=== PATIENT | female | born 1990 | race Hispanic/Latino ===

== ENCOUNTER 2018-04-18 18:02 | Emergency (ER) | payer SELFPAY ==
[2018-04-18 19:26] LABS: Urine Blood NEGATIVE (NEG); Urine Glucose NEGATIVE (NEG); Urine Protein NEGATIVE (NEG); Urine Specific Gravity 1.025 (1.005-1.030); Urine pH 6.5 (5.0-7.0)
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
== END 2018-04-18 20:06 | disposition home or self-care (01) ==
LOC: ER 18:02
DX: M54.5 Low back pain (principal); F17.210 Nicotine dependence, cigarettes, uncomplicated
CPT/HCPCS: 72100; 81003; 81025; 99284

== ENCOUNTER 2019-08-31 08:33 | Emergency (ER) | payer SELFPAY ==
[2019-08-31] MEDS ORDERED: CYCLOBENZAPRINE 10 MG TAB ONE (09:39)
[2019-08-31] MEDS ORDERED: TRAMADOL HCL 50 MG TAB ONE (09:39)
[2019-08-31] MEDS ORDERED: IBUPROFEN 400 MG TAB ONE (09:40)
[2019-08-31] MEDS ORDERED: IBUPROFEN 200 MG TAB PO ONE (09:40)
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
[2019-08-31 11:40] VITALS: BP 108/75; TEMP 98.1; O2SAT 100
[2019-08-31 18:00] LABS: Urine Blood NEGATIVE (NEG); Urine Glucose NEGATIVE (NEG); Urine Protein NEGATIVE (NEG); Urine pH 7.5 (5.0-7.0)
--- OUTSIDE RECORDS SUMMARY | 2019-09-05 00:31 | XMS REPORT ---
:1990 [facility] Address [address] [place] [address] Dr. [address] [place] [id number] Care Team Providers Name Role Phone Unavailable Unavailable Unavailable Problems This patient has no known problems. Allergies, Adverse Reactions, Alerts This patient has no known allergies or adverse reactions. Medications This patient has no known medications.
== END 2019-08-31 11:18 | disposition left against medical advice (07) ==
LOC: ER 08:33
DX: M54.6 Pain in thoracic spine (principal); V49.40XA Driver injured in collision with unspecified motor vehicles in traffic accident, initial encounter; F17.210 Nicotine dependence, cigarettes, uncomplicated
CPT/HCPCS: 71250; 81003; 81025; 99284

== ENCOUNTER 2020-12-06 09:24 | Emergency (ER) | payer SELFPAY ==
--- NOTE | 2020-12-06 10:20 | RAD REPORT ---
EXAM DESCRIPTION: RAD - Chest Single View - 12/06/2020 10:14 am CLINICAL HISTORY: Cough;Congestion Chest pain. COMPARISON: No comparisons FINDINGS: Portable technique limits examination quality. The lungs are grossly clear. The heart is normal in size. No displaced fractures. IMPRESSION: No acute intrathoracic process suspected.
[2020-12-06 10:58] LABS: Urine Blood NEGATIVE (NEG); Urine Glucose NEGATIVE (NEG); Urine Protein NEGATIVE (NEG); Urine Specific Gravity >1.030 (1.005-1.030); Urine pH 6.5 (5.0-7.0)
[2020-12-06 11:17] LABS: Urine Bacteria >50 /HPF (<20); Urine RBC <5 /HPF (NONE SEEN); Urine Trichomonas PRESENT (NONE SEEN)
[2020-12-06 11:40] LABS: SARS-COV-2 RT PCR NEGATIVE (NEGATIVE)
--- NOTE | 2020-12-06 11:44 | ER ---
Nurse's Notes [facility] Name: Valerie Sprague Age: 30 yrs Sex: Female : 1990 Arrival Date: 12/06/2020 Time: 09:26 Bed 13 Private MD: Diagnosis: Urinary tract infection, site not specified;Acute upper respiratory infection, unspecified;Trichomoniasis Presentation: 12/06 09:37 Chief complaint: Patient states: "I have been feeling bad for about a week now thinking jd3 it was my sinus infection. cough, congestion, headache with nausea and vomiting.". Coronavirus screen: congestion, cough unrelated to allergies, fatigue, nausea, shortness of breath, vomiting. Client presents with at least one sign or symptom that may indicate coronavirus-19. Standard/surgical mask placed on the client. Provider contacted for isolation considerations. Ebola Screen: Patient negative for fever greater than or equal to 101.5 degrees Fahrenheit, and additional compatible Ebola Virus Disease symptoms. Initial Sepsis Screen: Does the patient meet any 2 criteria? No. Patient's initial sepsis screen is negative. Does the patient have a suspected source of infection? No. Patient's initial sepsis screen is negative. Risk Assessment: Do you want to hurt yourself or someone else? Patient reports no desire to harm self or others. Onset of symptoms was November 29, 2020. 09:37 Method Of Arrival: Ambulatory [facility] 09:37 Acuity: JAMA 3 jd3 DIRECTOR OF INTELLIGENCE: 12:22 LMP N/A - Irregular menses jd3 Historical: - Allergies: 09:43 No Known Allergies; jd3 - Home Meds: 09:43 None [Active]; jd3 - PMHx: 09:43 None; jd3 - PSHx: 09:43 ; jd3 - Immunization history:: Adult Immunizations up to date. - Social history:: Smoking status: unknown. Screenin:46 Abuse screen: Denies threats or abuse. Nutritional screening: No deficits noted. jd3 Tuberculosis screening: No symptoms or risk factors identified. Fall Risk Ambulatory Aid- None/Bed Rest/Nurse Assist (0 pts). Gait- Normal/Bed Rest/Wheelchair (0 pts) Mental Status- Oriented to own ability (0 pts). Total Gay Fall Scale indicates No Risk (0-24 pts). Assessment: 09:44 General: Appears in no apparent distress. uncomfortable, Behavior is calm, cooperative, jd3 appropriate for age. Pain: Complains of pain in chest Quality of pain is described as pressure. Neuro: Level of Consciousness is awake, alert, obeys commands, Oriented to person, place, time, situation. Cardiovascular: Capillary refill < 3 seconds Patient's skin is warm and dry. Respiratory: Reports shortness of breath on exertion cough that is persistent Airway is patent Respiratory effort is even, unlabored, Respiratory pattern is regular, symmetrical. GI: Reports nausea, vomiting. : No signs and/or symptoms were reported regarding the genitourinary system. EENT: No signs and/or symptoms were reported regarding the EENT system. Derm: Skin is intact, Skin is dry, Skin is normal, Skin temperature is warm. Musculoskeletal: Circulation, motion, and sensation intact. Range of motion: intact in all extremities. 12:21 Reassessment: Patient appears in no apparent distress at this time. Patient and/or jd3 family updated on plan of care and expected duration. Pain level reassessed. Patient is alert, oriented x 3, equal unlabored respirations, skin warm/dry/pink. reported understanding of discharge instructions, even and steady gait upon discharge. Vital Signs: 09:43 BP 118 / 83; Pulse 75; Resp 18 S; Temp 98.0(O); Pulse Ox 100% on R/A; Weight 99.79 kg jd3 (R); Height 5 ft. 1 in. (154.94 cm) (R); Pain 8/10; 11:08 BP 104 / 72; Pulse 74; Resp 17 S; Pulse Ox 98% on R/A; jd3 12:22 BP 110 / 74; Pulse 76; Resp 16 S; Pulse Ox 98% on R/A; jd3 09:43 Body Mass Index 41.57 (99.79 kg, 154.94 cm) jd3 ED Course: 09:26 Patient arrived in ED. ag5 09:27 Italia Velazco [facility]NP-C [facility] kb 09:27 Valentín Carter MD is Attending Physician. kb 09:33 Domenic Moctezuma RN is Primary Nurse. jd3 09:42 Triage completed. jd3 09:44 Arm band placed on. jd3 09:46 Patient has correct armband on for positive identification. Bed in low position. Call jd3 light in reach. Side rails up X 1. Pulse ox on. NIBP on. 10:13 Chest Single View XRAY In Process Unspecified. EDMS 12:22 No provider procedures requiring assistance completed. Patient did not have IV access jd3 during this emergency room visit. Administered Medications: 12:10 Drug: Flagyl 2 grams Route: PO; jd3 12:22 Follow up: Response: Medication administered at discharge. jd3 Outcome: 11:43 Discharge ordered by . lianne 12:22 Discharged to home ambulatory. jd3 12:22 Condition: stable 12:22 Discharge instructions given to patient, Instructed on discharge instructions, follow up and referral plans. medication usage, Demonstrated understanding of instructions, follow-up care, medications, Prescriptions given X 1. 12:23 Patient left the ED. jd3 Addendum: 12/09/2020 07:14 Addendum: Culture Results: Positive urine culture. No further action required. Bacteria e b sensitive to prescribed antibiotic. Signatures: Dispatcher [employer] EDMS Italia Velazco, WHARF TENDER HELPER-C WHARF TENDER HELPER-Domenic Guillen, RN RN jd3 Chasidy Wetzel Ajare 5
--- NOTE | 2020-12-06 11:44 | EDPHYS ---
Physician Documentation [facility] Name: Valerie Sprague Age: 30 yrs Sex: Female : 1990 Arrival Date: 12/06/2020 Time: 09:26 Bed 13 Private MD: ED Physician Valentín Carter HPI: 12/06 10:41 This 30 yrs old Female presents to ER via Ambulatory with complaints of kb Weakness, Chest Pressure, Sneezing, Cough. 10:43 The patient or guardian reports cough, that is intermittent, described as mild, with no kb sputum, flu symptoms, low-grade fever, myalgias. Onset: The symptoms/episode began/occurred 1 week(s) ago, and became worse yesterday. Severity of symptoms: At their worst the symptoms were moderate, in the emergency department the symptoms are unchanged. Modifying factors: The symptoms are alleviated by nothing, the symptoms are aggravated by nothing. Associated signs and symptoms: Pertinent positives: chest pain, nausea, rhinorrhea, vomiting, Pertinent negatives: diarrhea, ear ache, fever, sore throat. The patient has not experienced similar symptoms in the past. The patient has not recently seen a physician. STAGE HAND: 12:22 LMP N/A - Irregular menses jd3 Historical: - Allergies: 09:43 No Known Allergies; jd3 - Home Meds: 09:43 None [Active]; jd3 - PMHx: 09:43 None; jd3 - PSHx: 09:43 ; jd3 - Immunization history:: Adult Immunizations up to date. - Social history:: Smoking status: unknown. ROS: 10:37 Cardiovascular: Negative for palpitations, and edema. +chest pressure Back: Negative kb for injury and pain, MS/Extremity: Negative for injury and deformity, Skin: Negative for injury, rash, and discoloration. 10:37 Constitutional: Positive for body aches, chills, fatigue, fever, malaise. 10:37 ENT: Positive for rhinorrhea, sinus congestion. 10:37 Respiratory: Positive for cough, Negative for dyspnea on exertion, hemoptysis, orthopnea, pleurisy, shortness of breath, sputum production, wheezing. 10:37 Abdomen/GI: Positive for nausea and vomiting, Negative for abdominal pain, diarrhea, constipation. 10:37 Neuro: Positive for weakness. Exam: 10:40 Constitutional: This is a well developed, well nourished patient who is awake, alert, kb and in no acute distress. Head/Face: Normocephalic, atraumatic. Chest/axilla: Normal chest wall appearance and motion. Nontender with no deformity. No lesions are appreciated. Cardiovascular: Regular rate and rhythm with a normal S1 and S2. No gallops, murmurs, or rubs. Normal PMI, no JVD. No pulse deficits. Respiratory: Lungs have equal breath sounds bilaterally, clear to auscultation and percussion. No rales, rhonchi or wheezes noted. No increased work of breathing, no retractions or nasal flaring. Abdomen/GI: Soft, non-tender, with normal bowel sounds. No distension or tympany. No guarding or rebound. No evidence of tenderness throughout. Skin: Warm, dry with normal turgor. Normal color with no rashes, no lesions, and no evidence of cellulitis. MS/ Extremity: Pulses equal, no cyanosis. Neurovascular intact. Full, normal range of motion. Neuro: Awake and alert, GCS 15, oriented to person, place, time, and situation. Cranial nerves II-XII grossly intact. Motor strength 5/5 in all extremities. Sensory grossly intact. Cerebellar exam normal. Normal gait. 11:53 ECG was reviewed by the Attending Physician. Vital Signs: 09:43 BP 118 / 83; Pulse 75; Resp 18 S; Temp 98.0(O); Pulse Ox 100% on R/A; Weight 99.79 kg jd3 (R); Height 5 ft. 1 in. (154.94 cm) (R); Pain 8/10; 11:08 BP 104 / 72; Pulse 74; Resp 17 S; Pulse Ox 98% on R/A; jd3 12:22 BP 110 / 74; Pulse 76; Resp 16 S; Pulse Ox 98% on R/A; jd3 09:43 Body Mass Index 41.57 (99.79 kg, 154.94 cm) jd3 MDM: 09:28 Patient medically screened. 10:40 Data reviewed: vital signs, nurses notes. Data interpreted: Pulse oximetry: on room air kb is 100 %. Interpretation: normal. Counseling: I had a detailed discussion with the patient and/or guardian regarding: the historical points, exam findings, and any diagnostic results supporting the discharge/admit diagnosis, lab results, radiology results, the need for outpatient follow up, a family practitioner, to return to the emergency department if symptoms worsen or persist or if there are any questions or concerns that arise at home. 12/06 09:37 Order name: Flu kb 12/06 09:37 Order name: COVID-19 : Document "Date of Symptom Onset" if Symptomatic. kb 12/06 10:36 Order name: Urine Microscopic Only kj1 12/06 10:36 Order name: Urine Microscopic Only; Complete Time: 11:20 EDMS 12/06 09:37 Order name: Chest Single View XRAY; Complete Time: 10:22 kb 12/06 09:37 Order name: EKG; Complete Time: 09:38 kb 12/06 09:37 Order name: EKG - Nurse/Tech; Complete Time: 10:25 kb 12/06 10:38 Order name: Urine Dipstick--Ancillary (enter results); Complete Time: 11:06 em 12/06 10:38 Order name: Urine --Ancillary (enter results); Complete Time: 11:06 em1 12/06 11:18 Order name: Urine Culture EDMT 12/06 11:41 Order name: COVID-19/FLU A+B; Complete Time: 11:41 EDMT 12/06 09:37 Order name: Urine Dipstick-Ancillary (obtain specimen); Complete Time: 10:36 kb EC:53 Rate is 68 beats/min. Rhythm is regular. QRS [place] is Normal. [place] interval is normal at kb 162 msec. QRS interval is normal at 88 msec. QT interval is normal at 378 msec. Administered Medications: 12:10 Drug: Flagyl 2 grams Route: PO; jd3 12:22 Follow up: Response: Medication administered at discharge. jd3 Disposition: 16:58 Co-signature as Attending Physician, Valentín Carter MD I agree with the assessment and kdr plan of care. Disposition: 12/06/20 11:43 Discharged to Home. Impression: Urinary tract infection, site not specified, Acute upper respiratory infection, unspecified, Trichomoniasis. - Condition is Stable. - Discharge Instructions: Trichomoniasis, Urinary Tract Infection, Adult, Rmsi-cy-Djlp, Viral Respiratory Infection, Husx-Vg-Tupx. - Prescriptions for Macrobid 100 mg Oral Capsule - take 1 capsule by ORAL route every 12 hours for 7 days; 14 capsule. - Medication Reconciliation Form, Thank You Letter, Antibiotic Education, Prescription Opioid Use, Work release form form. - Follow up: Emergency Department; When: As needed; Reason: Worsening of condition. Follow up: Private Physician; When: 2 - 3 days; Reason: Recheck today's complaints, Continuance of care, Re-evaluation by your physician. Signatures: Dispatcher [employer] [facility] Italia Velazco, WIRE STRIPPER-C WIRE STRIPPER-Ckb Valentín Carter MD MD kdr Davies, Jonathon RN RN jd3 Corrections: (The following items were deleted from the chart) 10:41 10:37 Cardiovascular: Negative for chest pain, palpitations, and edema, Back: Negative kb for injury and pain, MS/Extremity: Negative for injury and deformity, Skin: Negative for injury, rash, and discoloration, kb 11:00 09:38 Influenza Screen (A ordered. [facility] 11:00 09:38 CORONAVIRUS ordered. [facility] 12:23 11:43 12/06/2020 11:43 Discharged to Home. Impression: Urinary tract infection, site jd3 not specified; Acute upper respiratory infection, unspecified; Trichomoniasis. Condition is Stable. Forms are Medication Reconciliation Form, Thank You Letter, Antibiotic Education, Prescription Opioid Use. Follow up: Emergency Department; When: As needed; Reason: Worsening of condition. Follow up: Private Physician; When: 2 - 3 days; Reason: Recheck today's complaints, Continuance of care, Re-evaluation by your physician. kb
[2020-12-06] MEDS ORDERED: metroNIDAZOLE 500 MG TABLET ONE (12:23)
[2020-12-06 12:28] VITALS: TEMP 98
[2020-12-06 12:29] VITALS: O2SAT 98
[2020-12-06 12:30] VITALS: BP 110/74
--- NOTE | 2020-12-09 08:01 | EKG ---
Test Date: 2020-12-06 Test Time: 10:18:50 Retail Operations Specialist: JOSEPHINE MEASUREMENT RESULTS: Intervals: Rate: 68 [place]: 162 QRSD: 88 QT: 378 QTc: 401 [place]: P: 47 [place]: 162 QRS: 27 T: 24 INTERPRETIVE STATEMENTS: Normal sinus rhythm Normal ECG No previous ECG available for comparison Electronically Signed On 12-09-20 07:54:12 TIRE SPOTTER by Edmodn Baker
== END 2020-12-06 12:23 | disposition home or self-care (01) ==
LOC: ER 09:24
DX: N39.0 Urinary tract infection, site not specified (principal); J06.9 Acute upper respiratory infection, unspecified; A59.9 Trichomoniasis, unspecified; Z20.822 Contact with and (suspected) exposure to COVID-19
CPT/HCPCS: 0240U; 71045; 81003; 81015; 81025; 87077; 87086; 87088; 87186; 93005; 99284

== ENCOUNTER 2021-02-28 19:26 | Emergency (ER) | payer SELFPAY ==
[2021-02-28] MEDS ORDERED: IBUPROFEN 400 MG TAB ONE (20:25)
[2021-02-28] MEDS ORDERED: ONDANSETRON 4 MG/2 ML VIAL ONE (20:35)
[2021-02-28] MEDS ORDERED: MORPHINE 4 MG/ML SYR ONE (20:35)
[2021-02-28 20:51] LABS: Absolute Lymphocytes (CBC) 1.7 K/uL (0.7-4.9); Basophils % 0.1 % (0-1.3); Hematocrit 37.4 % (36.0-45.0); Lymphocytes % 22.2 % (15.3-44.8); MPV 8.5 fL (7.6-11.3); RBC Red Blood Cell Count 4.33 M/uL (3.86-4.86)
[2021-02-28 20:59] LABS: Urine Blood 3+ (Negative); Urine Glucose Negative (Negative); Urine Protein 1+ (Negative); Urine Specific Gravity 1.025 (1.005-1.030)
[2021-02-28 21:04] LABS: ALT/SGPT 28 U/L (12-78); AST/SGOT 13 U/L (15-37); Albumin 3.7 g/dL (3.4-5.0); Alkaline Phosphatase 97 U/L (45-117); BUN Blood Urea Nitrogen 12 mg/dL (7-18); Bicarbonate 25 mmol/L (21-32); Bilirubin Total 0.4 mg/dL (0.2-1.0); Glucose Level 83 mg/dL (74-106); Potassium 3.5 mmol/L (3.5-5.1); Protein, Total 7.6 g/dL (6.4-8.2); Sodium Level 142 mmol/L (136-145)
--- NOTE | 2021-02-28 21:18 | RAD REPORT ---
EXAM DESCRIPTION: CT - Head Brain Wo Cont - 02/28/2021 9:10 pm CLINICAL HISTORY: Headache/ear pain COMPARISON: None TECHNIQUE: Computed axial tomography of the head was obtained. IV contrast was not requested. All CT scans are performed using dose optimization technique as appropriate and may include automated exposure control or mA/KV adjustment according to patient size. FINDINGS: An intracranial bleed is not seen . The ventricles are normal in caliber. No extra-axial fluid collection is noted. Fluid is present within the left maxillary, ethmoid, sphenoid and frontal sinuses. Mild chronic opacification left mastoid. Fluid within the mastoids is not seen IMPRESSION: No acute intracranial abnormality is seen. If patient's symptoms persist MRI of the bra in would be recommended. Acute sinusitis
[2021-02-28 21:21] LABS: Urine Specific Gravity/Preg 1.025 (1.005-1.030)
--- NOTE | 2021-02-28 21:31 | RAD REPORT ---
EXAM DESCRIPTION: CTFacial Bones W Con Mpr02/28/2021 9:10 pm CLINICAL HISTORY: Facial pain and swelling COMPARISON: None. TECHNIQUE: Computed axial tomography of the face obtained with coronal and sagittal reconstruction. 50 cc Isovue-[address] scans are performed using dose optimization technique as appropriate and may include automated exposure control or mA/KV adjustment according to patient size. FINDINGS: The parotid and submandibular glands appear unremarkable. The visualized airway is unremarkable. Globes are normal size and density. Fluid is present within left maxillary, ethmoid, sphenoid and frontal sinuses. Small bilateral lymph nodes likely reactive in nature IMPRESSION: Acute sinusitis
[2021-02-28 21:35] LABS: Blood Morphology Comment NOT SEEN (NOT SEEN); Platelet Estimate ADEQ; White Blood Cell Scan OK (OK)
--- NOTE | 2021-02-28 22:16 | ER ---
Nurse's Notes [facility] Name: Valerie Sprague Age: 31 yrs Sex: Female : 1990 Arrival Date: 02/28/2021 Time: 19:29 Bed 17 Private MD: Diagnosis: Otitis externa in other diseases classified elsewhere, left ear;Acute sinusitis Presentation: 02/28 20:30 Chief complaint: Patient states: Reports ear pain that started two days ago, states she ea tried over the counter meds and nothing has helped. Coronavirus screen: At this time, the client does not indicate any symptoms associated with coronavirus-19. Ebola Screen: No symptoms or risks identified at this time. Initial Sepsis Screen: Does the patient meet any 2 criteria? No. Patient's initial sepsis screen is negative. Does the patient have a suspected source of infection? No. Patient's initial sepsis screen is negative. Risk Assessment: Do you want to hurt yourself or someone else? Patient reports no desire to harm self or others. Onset of symptoms was February 28, 2021. 20:30 Method Of Arrival: Ambulatory ea 20:30 Acuity: JAMA 3 ea Historical: - Home Meds: 20:32 None [Active]; ea - PMHx: 20:32 None; ea - PSHx: 20:32 ; ea - Immunization history:: Adult Immunizations up to date. - Social history:: Smoking status: Patient denies any tobacco usage or history of. Screenin:30 Abuse screen: Denies threats or abuse. Nutritional screening: No deficits noted. ea Tuberculosis screening: No symptoms or risk factors identified. Fall Risk None identified. Assessment: 20:33 General: Appears uncomfortable, Behavior is appropriate for age. Pain: Complains of ea pain in left side of head. Neuro: Level of Consciousness is awake, alert, obeys commands, Oriented to person, place, time. Respiratory: Airway is patent Respiratory effort is even, unlabored, Respiratory pattern is regular, symmetrical. EENT: swelling to right ear. Derm: Skin is pink, warm \T\ dry. 22:30 Reassessment: Patient and/or family updated on plan of care and expected duration. Pain ea level reassessed. Patient is alert, oriented x 3, equal unlabored respirations, skin warm/dry/pink. Discharge instruction given to patient verbalized the understanding of instruction. Pt left ED ambulatory accompanied by family. Vital Signs: 20:30 BP 112 / 81; Pulse 71; Resp 18; Temp 98; Pulse Ox 98% ; ea 22:20 BP 110 / 78; Pulse 81; Resp 18; Temp 98; Pulse Ox 99% ; ea ED Course: 19:29 Patient arrived in ED. bp1 19:55 Merlin Flynn PA is PHCP. jmm 19:55 Fercho Aviles MD is Attending Physician. jm 20:04 Jane Bill RN is Primary Nurse. ea 20:32 Triage completed. ea 20:32 Arm band placed on left wrist. Patient placed in an exam room, on a stretcher, on pulse ea oximetry. 20:32 Patient has correct armband on for positive identification. Bed in low position. Call ea light in reach. Side rails up X2. 20:32 Inserted saline lock: 20 gauge in right antecubital area, using aseptic technique. ea 20:47 PHCP role handed off by Merlin Flynn PA cp 20:47 Dashawn Landa PA is PHCP. cp 21:10 CT Head Brain wo Cont In Process Unspecified. EDMS 21:10 CT Facial Bones W/ Con \T\ Mpr In Process Unspecified. EDMS 22:15 Yenny Engel MD is Referral Physician. cp 22:31 No provider procedures requiring assistance completed. IV discontinued, intact, ea bleeding controlled, No redness/swelling at site. Pressure dressing applied. Administered Medications: 20:08 Drug: Ibuprofen 400 mg Route: PO; ea 21:46 Follow up: Response: No adverse reaction ea 20:29 Drug: morphine 4 mg Route: IVP; Site: right antecubital; ea 22:32 Follow up: Response: No adverse reaction ea 20:29 Drug: Zofran (Ondansetron) 4 mg Route: IVP; Site: right antecubital; ea 21:46 Follow up: Response: Pain is decreased ea 21:47 Follow up: Response: No adverse reaction; Pain is decreased ea 22:21 Drug: Rocephin (cefTRIAXone) 1 grams Route: IV; Rate: calculated rate; Site: right ea antecubital; 22:32 Follow up: Response: No adverse reaction; IV Status: Completed infusion ea 22:21 Drug: TORadol - (ketorolac) 15 mg Route: IVP; Site: right antecubital; ea 22:32 Follow up: Response: No adverse reaction ea Outcome: 22:15 Discharge ordered by . mariann 22:31 Discharged to home ambulatory, with family. ea 22:31 Condition: stable 22:31 Instructed on discharge instructions, Demonstrated understanding of instructions, follow-up care, medications, Prescriptions given X 3. 22:32 Patient left the ED. ea Signatures: Dispatcher [employer] EDMS Merlin Flynn PA PA jmm Page, Corey, PA PA cp Antunez, Elena, RN RN Luana Ortega
--- NOTE | 2021-02-28 22:16 | EDPHYS ---
Physician Documentation [facility] Name: Valerie Sprague Age: 31 yrs Sex: Female : 1990 Arrival Date: 02/28/2021 Time: 19:29 Bed 17 Private MD: ED Physician Fercho Aviles HPI: 02/28 20:04 This 31 yrs old Female presents to ER via Ambulatory with complaints of Ear jmm Pain. 20:04 The patient presents with pain, swelling. Onset: The symptoms/episode began/occurred 2 jmm day(s) ago. Modifying factors: The symptoms are alleviated by nothing, the symptoms are aggravated by nothing. Associated signs and symptoms: Pertinent negatives: fever, shortness of breath, sore throat. The patient has not experienced similar symptoms in the past. This is a 31 year old female with no chronic medical conditions that presents to the ED with complaints of left sided facial swelling beginning 2 days ago with ear pain. Denies fever, cough. . Historical: - Home Meds: 20:32 None [Active]; ea - PMHx: 20:32 None; ea - PSHx: 20:32 ; ea - Immunization history:: Adult Immunizations up to date. - Social history:: Smoking status: Patient denies any tobacco usage or history of. ROS: 20:04 Constitutional: Negative for fever, chills, and weight loss, Cardiovascular: Negative jmm for chest pain, palpitations, and edema, Respiratory: Negative for shortness of breath, cough, wheezing, and pleuritic chest pain. 20:04 ENT: Positive for ear pain. 20:04 All other systems are negative. Exam: 20:04 Constitutional: This is a well developed, well nourished patient who is awake, alert, jmm and in no acute distress. 20:04 Neck: Trachea midline, Supple Chest/axilla: Normal chest wall appearance and motion. Cardiovascular: Regular rate and rhythm. No edema appreciated Respiratory: Normal respirations, no respiratory distress appreciated Abdomen/GI: Non distended, soft Back: Normal ROM Skin: General appearance color normal MS/ Extremity: Moves all extremities, no obvious deformities appreciated, no edema noted to the lower extremities Neuro: Awake and alert, normal gait Psych: Behavior is normal, Mood is normal, Patient is cooperative and pleasant 20:04 Head/face: left sided facial swelling, TTP. 20:04 ENT: External ear(s): pain with movement, that is moderate, of the left ear lobe, TM's: erythema, is not appreciated, on the right. Vital Signs: 20:30 BP 112 / 81; Pulse 71; Resp 18; Temp 98; Pulse Ox 98% ; ea 22:20 BP 110 / 78; Pulse 81; Resp 18; Temp 98; Pulse Ox 99% ; ea MDM: 20:08 Patient medically screened. [facility] 20:50 Transition of care: After a detail discussion of the patient's case, care is [facility] transferred to Dashawn RIVERS. 21:00 Differential diagnosis: otitis media, otitis externa, ruptured TM, foreign body, cp cellulitis, mastoiditis, abscess. 22:15 Data reviewed: vital signs, nurses notes, lab test result(s), radiologic studies, CT cp scan. 22:15 Counseling: I had a detailed discussion with the patient and/or guardian regarding: the cp historical points, exam findings, and any diagnostic results supporting the discharge/admit diagnosis, lab results, radiology results, the need for outpatient follow up, an ENT specialist, to return to the emergency department if symptoms worsen or persist or if there are any questions or concerns that arise at home. Response to treatment: the patient's symptoms have markedly improved after treatment, and as a result, I will discharge patient. 02/28 20:09 Order name: CBC with Diff; Complete Time: 21:37 [facility] 02/28 20:09 Order name: CMP; Complete Time: 21:37 [facility] 02/28 20:09 Order name: CT Head Brain wo Cont; Complete Time: 21:37 [facility] 02/28 20:57 Order name: CBC Smear Scan; Complete Time: 21:37 [facility] 02/28 20:59 Order name: Urine Dipstick-Ancillary; Complete Time: 21:37 [facility] 02/28 21:03 Order name: Urine --Ancillary (enter results); Complete Time: 21:37 [facility] 02/28 20:09 Order name: CT Facial Bones W/ Con \T\ Mpr; Complete Time: 21:37 [facility] 02/28 20:09 Order name: Urine Dipstick-Ancillary (obtain specimen); Complete Time: 21:05 [facility] 02/28 20:09 Order name: Urine Test (obtain specimen); Complete Time: 21:05 dequan Administered Medications: 20:08 Drug: Ibuprofen 400 mg Route: PO; ea 21:46 Follow up: Response: No adverse reaction ea 20: Drug: morphine 4 mg Route: IVP; Site: right antecubital; ea 22:32 Follow up: Response: No adverse reaction ea 20:29 Drug: Zofran (Ondansetron) 4 mg Route: IVP; Site: right antecubital; ea 21:46 Follow up: Response: Pain is decreased ea 21:47 Follow up: Response: No adverse reaction; Pain is decreased ea 22:21 Drug: Rocephin (cefTRIAXone) 1 grams Route: IV; Rate: calculated rate; Site: right ea antecubital; 22:32 Follow up: Response: No adverse reaction; IV Status: Completed infusion ea 22:21 Drug: TORadol - (ketorolac) 15 mg Route: IVP; Site: right antecubital; ea 22:32 Follow up: Response: No adverse reaction ea Disposition: 03/01 06:34 Co-signature as Attending Physician, Fercho Aviles MD. [email or web address] Disposition: 02/28/21 22:15 Discharged to Home. Impression: Otitis externa in other diseases classified elsewhere, left ear, Acute sinusitis. - Condition is Stable. - Discharge Instructions: Otitis Externa, Sinusitis, Adult. - Prescriptions for Augmentin 875- 125 mg Oral Tablet - take 1 tablet by ORAL route every 12 hours for 10 days; 20 tablet. Tylenol- Codeine #3 300-30 mg Oral Tablet - take 2 tablets by ORAL route every 8-12 hours As needed; 15 tablet. Ciprodex 0.3- 0.1 % Otic Drops, Suspension - instill 4 drops by OTIC route every 12 hours for 7 days , for ears ONLY. instill drops in left ear canal as directed; 1 Container. - Medication Reconciliation Form, Thank You Letter, Antibiotic Education, Prescription Opioid Use form. - Follow up: Yenny Engel MD; When: 2 - 3 days; Reason: Recheck today's complaints. - Problem is new. - Symptoms have improved. Signatures: Dispatcher [employer] EDMerlin Mercado PA PA jmm Page, Corey, PA PA cp Antunez, Elena, RN RN Fercho Grewal MD MD [email or web address] Corrections: (The following items were deleted from the chart) 02/28 22:32 22:15 02/28/2021 22:15 Discharged to Home. Impression: Otitis externa in other diseases ea classified elsewhere, left ear; Acute sinusitis. Condition is Stable. Forms are Medication Reconciliation Form, Thank You Letter, Antibiotic Education, Prescription Opioid Use. Follow up: Yenny Engel; When: 2 - 3 days; Reason: Recheck today's complaints. Problem is new. Symptoms have improved. cp
[2021-02-28] MEDS ORDERED: KETOROLAC 30 MG/ML INJ ONE (22:34)
[2021-02-28] MEDS ORDERED: CEFTRIAXONE 1000 MG/VIAL ONE (22:34)
[2021-02-28 22:56] VITALS: TEMP 98
[2021-02-28 22:58] VITALS: BP 110/78; O2SAT 99
== END 2021-02-28 22:32 | disposition home or self-care (01) ==
LOC: ER 19:26
DX: H60.92 Unspecified otitis externa, left ear (principal); J01.90 Acute sinusitis, unspecified
CPT/HCPCS: 36415; 70450; 70487; 76377; 80053; 81003; 81025; 85025; 96374; 96375; 99284; J2405; Q9967

== ENCOUNTER 2024-07-09 16:55 | Emergency (ER) | payer SELFPAY ==
--- NOTE | 2024-07-09 17:57 | RAD REPORT ---
EXAM DESCRIPTION: Jm Single View07/09/2024 5:46 pm CLINICAL HISTORY: Chest pain COMPARISON: 2020 FINDINGS: The lungs appear clear of acute infiltrate. The heart is normal size IMPRESSION: No acute abnormalities displayed
[2024-07-09 18:03] LABS: Absolute Eosinophils 0.1 K/uL (0-0.5); Absolute Lymphocytes (CBC) 1.9 K/uL (0.7-4.9); Absolute Monocytes 0.4 K/uL (0.1-1.3); Absolute Neutrophil 5.4 K/uL (1.8-8.0); Basophils % 0.4 % (0-1.3); Eosinophils % 0.8 % (0-4.4); Hematocrit 28.8 % (36.0-45.0); Hemoglobin 10.2 g/dL (12.0-15.0); Lymphocytes % 24.1 % (15.3-44.8); MCH 31.6 pg (27.0-35.0); MCHC 35.4 g/dL (32.0-36.0); MCV 89.2 fL (80-100); MPV 7.3 fL (7.6-11.3); Monocytes % 5.7 % (3.3-12.3); Nucleated Red Blood Cells % 0.2 % (0-0); Platelets 221 thou/uL (152-406); RBC Red Blood Cell Count 3.23 M/uL (3.86-4.86); Red Cell Distribution Width 12.6 % (12.1-15.2)
[2024-07-09 18:21] LABS: Anion Gap 16.9 mEq/L (5.0-15.0); Potassium 3.9 mEq/L (3.5-5.1)
[2024-07-09] MEDS ORDERED: KETOROLAC 30 MG/ML INJ ONE (18:45)
--- NOTE | 2024-07-09 20:14 | EDPHYS ---
Physician Documentation [facility] Name: Valerie Sprague Age: 34 yrs Sex: Female : 1990 Arrival Date: 07/09/2024 Time: 16:55 Bed 17 Private MD: ED Physician Dashawn Scott HPI: 07/09 17:33 This 34 yrs old Female presents to ER via EMS with complaints of Near Syncope, aj3 Anxiety, Hyperventilation, Shoulder Pain. 17:33 She reports that she was experiencing some shoulder pain near her shoulder blade region aj3 that was sharp in nature, worse with deep breaths. She does remembers the pain being bad that she fainted. She does note that she has been working outside over the last couple of days and they believe that she might be dehydrated. She is having a little bit of chest discomfort at this time.. 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 - Infectious Disease History:: Denies. - Social history:: Smoking status: Patient denies any tobacco usage or history of. ROS: 17:33 Constitutional: Negative for fever, chills, and weight loss, Abdomen/GI: Negative for aj3 abdominal pain, nausea, vomiting, diarrhea, and constipation, MS/Extremity: Negative for injury and deformity, Neuro: Negative for syncope, headache, weakness, numbness, tingling, and seizure, Psych: Negative for depression, anxiety, suicide ideation, homicidal ideation, and hallucinations, 17:33 Respiratory: Negative for shortness of breath, cough, wheezing, and pleuritic chest pain, 17:33 Cardiovascular: Positive for chest pain, 17:33 Neuro: Positive for syncope, Exam: 17:58 ECG was reviewed by the Attending Physician. aj3 18:44 Constitutional: This is a well developed, well nourished patient who is awake, alert, aj3 and in no acute distress. Eyes: Pupils equal round and reactive to light, extra-ocular motions intact. Lids and lashes normal. Conjunctiva and sclera are non-icteric and not injected. Cornea within normal limits. Periorbital areas with no swelling, redness, or edema. Cardiovascular: Regular rate and rhythm with a normal S1 and S2. No gallops, murmurs, or rubs. Normal PMI, no JVD. No pulse deficits. Respiratory: Lungs have equal breath sounds bilaterally, clear to auscultation and percussion. No rales, rhonchi or wheezes noted. No increased work of breathing, no retractions or nasal flaring. Abdomen/GI: Soft, non-tender, with normal bowel sounds. No distension or tympany. No guarding or rebound. No evidence of tenderness throughout. MS/ Extremity: Pulses equal, no cyanosis. Neurovascular intact. Full, normal range of motion. Neuro: Awake and alert, GCS 15, oriented to person, place, time, and situation. Motor strength 5/5 in all extremities. Sensory grossly intact. Normal gait. Vital Signs: 17:23 BP 114 / 83; Pulse 76; Resp 18; Pulse Ox 100% on R/A; ld1 18:37 BP 109 / 71; Pulse 94; Resp 18; Pulse Ox 100% on R/A; ld1 20:28 BP 104 / 69; Pulse 74; Resp 18; Temp 98.2; Pulse Ox 100% ; cp4 MDM: 17:17 Patient medically screened. aj3 18:44 Differential Diagnosis: cardiac arrhythmia, vasovagal episode, Dehydration, electrolyte aj3 imbalance. 20:00 ED course: To be discPatient's ED workup unremarkable for acute findings to [facility]. Her symptoms have improved after medications given in the ED charged home. Discharge instructions for supportive measures, medications prescribed, follow-up and strict ER return precautions given. 20:00 Data reviewed: vital signs, nurses notes, lab test result(s), EKG, radiologic studies, aj3 plain films. Independent interpretation of the following test(s) in the Emergency Department X-Ray: My interpretation is No obvious abnormality noted on my review of x-ray. 07/09 17:16 Order name: Basic Metabolic Panel; Complete Time: 18:42 aj3 07/09 17:16 Order name: CBC with Diff; Complete Time: 18:42 aj3 07/09 17:16 Order name: Troponin HS; Complete Time: 18:42 aj3 07/09 17:16 Order name: Test, Serum; Complete Time: 18:42 07/09 17:16 Order name: CK; Complete Time: 18:42 07/09 17:16 Order name: XRAY Chest (1 view); Complete Time: 18:42 07/09 17:16 Order name: EKG; Complete Time: 17:17 07/09 17:16 Order name: Cardiac monitoring; Complete Time: 17:19 07/09 17:16 Order name: EKG - Nurse/Tech; Complete Time: 18:12 07/09 17:16 Order name: IV Saline Lock; Complete Time: 18:12 07/09 17:16 Order name: Labs collected and sent; Complete Time: 18:12 07/09 17:16 Order name: O2 Per Protocol; Complete Time: 17:19 07/09 17:16 Order name: O2 Sat Monitoring; Complete Time: 17:19 07/09 18:43 Order name: PO challenge: please give juice and crackers; Complete Time: 18:44 aj3 EC:55 Rate is 66 beats/min. Rhythm is regular. QRS [place] is Normal. SC interval is normal. QRS aj3 interval is normal. QT interval is normal. T waves are Normal. No ST changes noted. Clinical impression: Normal sinus rhythm with early repolarization. Administered Medications: 18:47 Drug: Ketorolac IVP 15 mg IVP once Route: IVP; Site: right antecubital; ld1 19:10 Follow up: Response: No adverse reaction cp4 Disposition Summary: 07/09/24 20:13 Discharge Ordered Notes: Location: Home aj3 Problem: new aj3 Symptoms: have improved aj3 Condition: Stable aj3 Diagnosis - Syncope Near aj3 - Strain of muscle and tendon of back wall of thorax, initial encounter aj3 Followup: aj3 - With: Private Physician - When: 2 - 3 days - Reason: Recheck today's complaints Discharge Instructions: - Discharge Summary Sheet aj3 - Thoracic Strain aj3 Forms: - Medication Reconciliation Form aj3 - Antibiotic Education aj3 - Prescription Opioid Use aj3 - Patient Portal Instructions aj3 - Leadership Thank You Letter aj3 Prescriptions: - Naprosyn 500 mg Oral Tablet - take 1 tablet ORAL route 2 times per day take with food; 30 tablet; Refills: 0, aj3 Product Selection Permitted Signatures: Dispatcher [employer] EDMS Ada Irizarry, RN RN ld1 Nury Baron, PAINTER MAINTENANCE PAINTER MAINTENANCE aj3 Sonali Hurtado cp4 Corrections: (The following items were deleted from the chart) 17:17 17:17 BASIC METABOLIC PANEL+C.LAB.BRZ ordered. EDMS EDMS 17:17 17:17 CBC+H.LAB.BRZ ordered. EDMS EDMS 17:17 17:17 Troponin High Sensitivity+C.LAB.BRZ ordered. EDMS EDMS 17:17 17:17 TEST, SERUM+SC.LAB.BRZ ordered. EDMS EDMS 17:17 17:17 CREATINE PHOSPHOKINASE+C.LAB.BRZ ordered. EDMS EDMS
--- NOTE | 2024-07-09 20:14 | ER ---
Nurse's Notes [facility] Name: Valerie Sprague Age: 34 yrs Sex: Female : 1990 Arrival Date: 07/09/2024 Time: 16:55 Bed 17 Private MD: Diagnosis: Syncope Near;Strain of muscle and tendon of back wall of thorax, initial encounter Presentation: 07/09 17:08 Chief complaint: EMS states: toned out for near syncopal episode. Pt reports near ld1 syncopal event, hyperventilation and anxiety. Coronavirus screen: At this time, the client does not indicate any symptoms associated with coronavirus-19. Ebola Screen: No symptoms or risks identified at this time. Risk Assessment: Do you want to hurt yourself or someone else? Patient reports no desire to harm self or others. Onset of symptoms was July 09, 2024. 17:08 Method Of Arrival: EMS: [facility] ld1 17:08 Acuity: JAMA 3 ld1 19:46 Initial Sepsis Screen: Does the patient meet any 2 criteria? No. Patient's initial cp4 sepsis screen is negative. Does the patient have a suspected source of infection? No. Patient's initial sepsis screen is negative. Triage Assessment: 17:08 General: Appears in no apparent distress. comfortable, Behavior is cooperative, ld1 anxious. Pain: Denies pain. EENT: No signs and/or symptoms were reported regarding the EENT system. Neuro: Level of Consciousness is awake, alert, obeys commands, Oriented to person, place, time, situation. Cardiovascular: Capillary refill < 3 seconds Patient's skin is warm and dry. Respiratory: Reports Airway is patent Respiratory effort is even, unlabored, Onset: The symptoms/episode began/occurred just prior to arrival, the patient has mild shortness of breath. GI: Abdomen is round non-distended. : No signs and/or symptoms were reported regarding the genitourinary system. Derm: No signs and/or symptoms reported regarding the dermatologic system. Musculoskeletal: No signs and/or symptoms reported regarding the musculoskeletal system. 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 - Infectious Disease History:: Denies. - Social history:: Smoking status: Patient denies any tobacco usage or history of. Screenin:23 [facility] ED Fall Risk Assessment (Adult) History of falling in the last 3 months, ld1 including since admission No falls in past 3 months (0 pts) Confusion or Disorientation No (0 pts) Intoxicated or Sedated No (0 pts) Impaired Gait No (0 pts) Mobility Assist Device Used No (0 pt) Altered Elimination No (0 pt) Score/Fall Risk Level 0 - 2 = Low Risk Oriented to surroundings, Maintained a safe environment, Educated pt \T\ family on fall prevention, incl call for assistance when getting out of bed, Assessed \T\ reinforced patient's understanding of fall precautions, Provided non-skid footwear, Hourly rounding (assess needs \T\ fall precautionary measures) done, Used ambulatory aids as needed (educated on \T\ assisted with), Used gait belt as appropriate. Abuse screen: Denies threats or abuse. Denies injuries from another. Nutritional screening: No deficits noted. Tuberculosis screening: No symptoms or risk factors identified. Assessment: 17:23 General: Appears in no apparent distress. comfortable, Behavior is calm, cooperative, ld1 appropriate for age. Pain: Denies pain. Neuro: Level of Consciousness is awake, alert, obeys commands, Oriented to person, place, time, situation. Cardiovascular: Capillary refill < 3 seconds Patient's skin is warm and dry. Rhythm is sinus rhythm. Respiratory: Airway is patent Respiratory effort is even, unlabored, Breath sounds are clear bilaterally. GI: Abdomen is flat, non-distended. : No signs and/or symptoms were reported regarding the genitourinary system. EENT: No signs and/or symptoms were reported regarding the EENT system. Derm: No signs and/or symptoms reported regarding the dermatologic system. Musculoskeletal: No signs and/or symptoms reported regarding the musculoskeletal system. 18:37 Reassessment: Patient appears in no apparent distress at this time. No changes from ld1 previously documented assessment. Patient and/or family updated on plan of care and expected duration. Pain level reassessed. Patient is alert, oriented x 3, equal unlabored respirations, skin warm/dry/pink. 19:46 General: Appears in no apparent distress. comfortable, Behavior is calm, cooperative, cp4 appropriate for age. Pain: Denies pain. Neuro: Level of Consciousness is awake, alert, obeys commands, Oriented to person, place, time, situation. Cardiovascular: Patient's skin is warm and dry. Respiratory: Airway is patent Respiratory effort is even, unlabored. GI: Abdomen is flat, non-distended. : No signs and/or symptoms were reported regarding the genitourinary system. EENT: No signs and/or symptoms were reported regarding the EENT system. Derm: No signs and/or symptoms reported regarding the dermatologic system. Musculoskeletal: No signs and/or symptoms reported regarding the musculoskeletal system. Vital Signs: 17:23 BP 114 / 83; Pulse 76; Resp 18; Pulse Ox 100% on R/A; ld1 18:37 BP 109 / 71; Pulse 94; Resp 18; Pulse Ox 100% on R/A; ld1 20:28 BP 104 / 69; Pulse 74; Resp 18; Temp 98.2; Pulse Ox 100% ; cp4 ED Course: 17:07 Patient arrived in ED. ld1 17:08 Arm band placed on right wrist. ld1 17:09 Nury Baron NP is PHCP. aj3 17:09 Dashawn Scott MD is Attending Physician. aj3 17:11 Triage completed. ld1 17:11 Inserted saline lock: 20 gauge in right forearm, using aseptic technique. Blood ld1 collected. Flushed with 10 mL NS. 17:14 Client placed on continuous cardiac and pulse oximetry monitoring. NIBP monitoring hb applied. quality assurance monitor body on. Pulse ox on. NIBP on. 17:23 Ada Irizarry, ANDREW is Primary Nurse. ld1 17:23 Patient has correct armband on for positive identification. Placed in gown. Bed in low ld1 position. Call light in reach. Side rails up X2. Door closed. Noise minimized. 17:23 No provider procedures requiring assistance completed. ld1 17:48 XRAY Chest (1 view) In Process Unspecified. EDMS 18:12 Inserted saline lock: 20 gauge in right antecubital area, using aseptic technique. ld1 Blood collected. Flushed with 10 mL NS. 20:29 Provided Education on: thoracic strain. cp4 20:29 intact, bleeding controlled, No redness/swelling at site. Pressure dressing applied. cp4 Administered Medications: 18:47 Drug: Ketorolac IVP 15 mg IVP once Route: IVP; Site: right antecubital; ld1 19:10 Follow up: Response: No adverse reaction cp4 Medication: 20:30 VIS not applicable for this client. cp4 Outcome: 20:13 Discharge ordered by MD. aj3 20:29 Discharged to home ambulatory, cp4 20:29 Condition: stable 20:29 Discharge instructions given to patient, Instructed on discharge instructions, follow up and referral plans. medication usage, Demonstrated understanding of instructions, follow-up care, medications, Prescriptions given X 1, 20:30 Patient left the ED. cp4 Signatures: Dispatcher [employer] EDRebecca Bejarano, RN ANDREW Ada Irizarry RN RN ld1 Nury Baron, VOICE PROFESSOR VOICE PROFESSOR Sonali Fields cp4
[2024-07-09 20:42] VITALS: O2SAT 100
[2024-07-09 20:44] VITALS: BP 104/69; TEMP 98.2
--- NOTE | 2024-07-11 12:52 | EKG ---
Test Date: 2024-07-09 Test Time: 17:55:08 [employer] Tender: GREG MEASUREMENT RESULTS: Intervals: Rate: 66 MT: 176 QRSD: 94 QT: 396 QTc: 415 [place]ola: P: 40 MT: 176 QRS: 35 T: 8 INTERPRETIVE STATEMENTS: Normal sinus rhythm ST elevation, consider early repolarization, pericarditis, or injury Abnormal ECG Compared to ECG 12/06/2020 10:18:50 ST (T wave) deviation now present Electronically Signed On 07-11-24 12:47:56 CDT by Ivan San
== END 2024-07-09 20:30 | disposition home or self-care (01) ==
LOC: ER 16:55
DX: R55 Syncope and collapse (principal); S29.012A Strain of muscle and tendon of back wall of thorax, initial encounter; F41.9 Anxiety disorder, unspecified; M25.519 Pain in unspecified shoulder; X58.XXXA Exposure to other specified factors, initial encounter
CPT/HCPCS: 36415; 71045; 80048; 82550; 84484; 84703; 85025; 93005; 96374; 99285